=== PATIENT | female | born 1945 | race African-American/Black ===

== ENCOUNTER 2017-02-12 09:46 | Observation (INO) | payer OTHER ==
[~2017-02-12] VITALS: Ht 160 cm; Wt 124.3 kg
[2017-02-12] MEDS ORDERED: METO-385 PO (09:55)
[2017-02-12] MEDS ORDERED: ATOR10TA69 PO (09:55)
[2017-02-12] MEDS ORDERED: SPIR1POW3 MC (09:58)
[2017-02-12] MEDS ORDERED: METF500T4 PO (09:58)
[2017-02-12] MEDS ORDERED: VALS40TA4 PO (09:58)
[2017-02-12] MEDS ORDERED: DIPHENHYDRAMINE 50MG/ML VIAL IV ONE (10:15)
[2017-02-12] MEDS ORDERED: METHYLPREDNISOLONE SOD SUCC 125 MG/2 ML VIAL IV ONE (10:15)
[2017-02-12] MEDS ORDERED: FAMOTIDINE 20MG/2ML VIAL IV ONE (10:15)
[2017-02-12 10:54] LABS: BASOPHILS % 1.1 % (0.0-2.0); EOSINOPHILS % 2.4 % (0.0-5.0); HEMATOCRIT. 37.2 % (36.0-48.0); LYMPHOCYTES % 30.1 % (20.0-50.0); MEAN CORPUSCULAR HEMOGLOBIN 26.7 pg (28.0-32.0); MEAN CORPUSCULAR VOLUME 82.4 fL (81.0-99.0); MEAN PLATELET VOLUME 8.8 fl (7.4-10.4); MONOCYTES % 5.7 % (2.0-8.0); NEUTROPHILS % 60.7 % (40.0-76.0); PLATELET 264 x1000/uL (130-400); RED BLOOD CELL COUNT 4.52 mill/uL (4.2-5.4); RED CELL DISTRIBUTION WIDTH 16.7 % (11.6-14.6)
[2017-02-12 11:02] LABS: PARTIAL THROMBOPLASTIN TIME 27.8 sec (23.4-31.0); PROTHROMBIN TIME 10.7 sec (9.4-11.6)
[2017-02-12 11:10] LABS: CARBON DIOXIDE 28 mEq/L (21-32); CHLORIDE 105 mEq/L (98-107); TROPONIN I 0.05 ng/mL (0.00-0.04)
[2017-02-12] MEDS ORDERED: DOCU-150 PO (14:45)
[2017-02-12] MEDS ORDERED: ATOR20TA65 PO (14:45)
[2017-02-12] MEDS ORDERED: ASPI-1159 PO (14:45)
[2017-02-12] MEDS ORDERED: SPIR50TA26 PO (14:45)
[2017-02-12] MEDS ORDERED: IBUP-2030 PO (14:45)
[2017-02-12] MEDS ORDERED: VALS160T2 PO (14:45)
[2017-02-12] MEDS ORDERED: METF850T2 PO (14:45)
[2017-02-12] MEDS ORDERED: HYDRALAZINE 20MG/ML VIAL IV NR (15:15)
[2017-02-12 15:43] VITALS: BP 178/85
[2017-02-12] MEDS ORDERED: IPRATROPIUM/ALBUTEROL 0.5-3(2.5)MG/3ML NEB INH PRN (15:45)
[2017-02-12] MEDS ORDERED: ONDANSETRON HCL 4MG/2ML VIAL IV PRN (15:45)
[2017-02-12] MEDS ORDERED: DEXTROSE 50% WATER 50ML SYRINGE IV PRN (15:45)
[2017-02-12] MEDS ORDERED: ACETAMINOPHEN 325MG TABLET PO PRN (15:45)
[2017-02-12] MEDS ORDERED: CLONIDINE 0.1MG TABLET PO PRN (15:45)
[2017-02-12] MEDS ORDERED: DIPHENHYDRAMINE 50MG/ML VIAL IV PRN (15:45)
[2017-02-12] MEDS ORDERED: MAGNESIUM/ALUMINUM HYDROXIDE/SIMETHICONE 30ML UDC PO PRN (15:45)
[2017-02-12 16:00] VITALS: BP 179/76
[2017-02-12] MEDS: BLOOD SUGAR DIAGNOSTIC STRIP TEST SCH ×2 (16:45→21:28)
[2017-02-12] MEDS: INSULIN LISPRO 100 UNITS/ML SUBCUT SCH ×2 (18:09→21:38)
[2017-02-12 20:00] VITALS: BP 142/61
[2017-02-12] MEDS: HYDRALAZINE HCL 50MG TABLET PO SCH ×2 (21:00→22:13)
[2017-02-12] MEDS: FAMOTIDINE 20MG/2ML VIAL IV SCH (21:27)
[2017-02-12] MEDS: METOPROLOL TARTRATE 50MG TABLET PO SCH (21:27)
[2017-02-12] MEDS: AMLODIPINE 5MG TABLET PO SCH (21:27)
[2017-02-12] MEDS: SODIUM CHLORIDE 0.9% INJ 3ML FLUSH IVF SCH (21:34)
[2017-02-12] MEDS ORDERED: GUAIFENESIN-DM 200MG-20MG/10ML UDC PO PRN (22:30)
[2017-02-12] MEDS ORDERED: TEMAZEPAM 15MG CAPSULE PO PRN (22:30)
[2017-02-12] MEDS ORDERED: DIPHENHYDRAMINE 50MG/ML VIAL IV NR (22:30)
[2017-02-12] MEDS ORDERED: METHYLPREDNISOLONE SOD SUCC 40 MG/ML VIAL IV NR (22:30)
[2017-02-12 23:35] LABS: CLARITY URINE CLEAR (CLEAR); COLOR URINE YELLOW (YELLOW); GLUCOSE URINE 2+ (NEGATIVE); KETONES URINE TRACE (NEGATIVE); LEUKOCYTE ESTERASE URINE NEGATIVE (NEGATIVE); NITRITE URINE NEGATIVE (NEGATIVE); OCCULT BLOOD URINE NEGATIVE (NEGATIVE); PH URINE 6.5 (4.5-8.0); PROTEIN URINE NEGATIVE (NEGATIVE); SPECIFIC GRAVITY URINE 1.017 (1.005-1.030); UROBILINOGEN URINE 0.2 E.U./dL (0.2-1.0)
[2017-02-13] VITALS: BP 142/49
[2017-02-13 04:00] VITALS: BP 142/64
[2017-02-13] MEDS: BLOOD SUGAR DIAGNOSTIC STRIP TEST SCH ×2 (05:54→12:23)
[2017-02-13] MEDS: SODIUM CHLORIDE 0.9% INJ 3ML FLUSH IVF SCH (06:57)
[2017-02-13] MEDS: INSULIN LISPRO 100 UNITS/ML SUBCUT SCH ×2 (06:57→12:34)
[2017-02-13 08:10] VITALS: BP 137/57
[2017-02-13] MEDS: FAMOTIDINE 20MG/2ML VIAL IV SCH (08:29)
[2017-02-13] MEDS: AMLODIPINE 5MG TABLET PO SCH (08:29)
[2017-02-13] MEDS: METOPROLOL TARTRATE 50MG TABLET PO SCH (08:30)
[2017-02-13] MEDS: HYDRALAZINE HCL 50MG TABLET PO SCH (08:30)
[2017-02-13 12:25] VITALS: BP 136/68
[2017-02-13] MEDS ORDERED: HYDR-4135 PO (12:38)
[2017-02-13] MEDS ORDERED: AMLO5TAB4 PO (12:39)
== END 2017-02-13 13:35 | disposition home or self-care (01) ==
LOC: ER 10:12 → EDBEDREQ 10:29 → INTOOBSV 11:57 → 5WST 11:57 → EDBEDREQ 11:58 → ENRESERV 12:13
PROVIDERS: ADMIT Internal Medicine; ATTEND Internal Medicine
DX: I10 Essential (primary) hypertension (principal); E11.9 Type 2 diabetes mellitus without complications; E78.00 Pure hypercholesterolemia, unspecified; E66.01 Morbid (severe) obesity due to excess calories; Z86.73 Personal history of transient ischemic attack (TIA), and cerebral infarction without residual deficits; Z96.653 Presence of artificial knee joint, bilateral; T78.3XXA Angioneurotic edema, initial encounter; Z90.711 Acquired absence of uterus with remaining cervical stump
CPT/HCPCS: 36415; 36569; 71010; 76937; 77001; 80053; 81001; 82962; 83605; 83690; 84484; 85025; 85610; 85730; 87040; 93005; 96372; 96374; 96375; 96376; 99285; C1725; G0378; J0360; J1200; J1815; J2920; J2930; J3490